=== PATIENT | female | born 1935 | race Caucasian/White ===

== ENCOUNTER 2017-06-08 17:37 | Inpatient (IN) | payer OTHER ==
[~2017-06-08] VITALS: Ht 165.1 cm; Wt 84.7 kg
[~2017-06-08 17:37] MED LIST: ARICEPT5 MG PO; CELEBREX200 MG PO; CRESTOR20 MG PO; FLOVENT DISKUS1 DIS2 IH; Feosol PO; LISINOPRIL-HCT1 EACH PO; Lovenox SC; Lumigan 0.01% Ophth BOTH EYES; Milk Of Magnesia,MOM PO; NORVASC10 MG PO; Norvasc PO; PROTONIX40 MG PO; Percocet 5/325,Endoc PO; Protonix PO; Rocephin IV; Senokot,Sennagen PO; Theragran PO; Tylenol Regular Stre PO; VOLTAREN75 MG PO; Vitamin D, Drisdol PO; ZOLOFT100 MG PO; Zestoretic,Prinzide PO; Zoloft PO
[2017-06-08 22:18] LABS: EOSINOPHIL (%) 0.5 % (0-5); EOSINOPHIL COUNT 0.1 K/uL (0-0.3); HEMATOCRIT 43.5 % (36.0-46.0); IMMATURE GRANULOCYTE (%) 0.6 % (0.0-0.7); IMMATURE GRANULOCYTE COUNT 0.1 K/uL; INSTRUMENT ABS NEUTROPHIL CT 7.3 K/uL; LYMPHOCYTE COUNT 1.5 K/uL (1.0-2.8); MCH 28.4 PG (29.0-34.0); MCHC 33.3 G/DL (30.0-36.0); MCV 85.3 FL (83-99); MEAN PLAT.VOLUME 12.7 uM^3 (9.5-12.4); MONOCYTE (%) 5.6 % (3-12); MONOCYTE COUNT 0.5 K/uL (0-0.8); NEUTROPHIL (%) 77.1 % (45-76); NEUTROPHIL COUNT 7.3 K/uL (1.8-6.4); PLATELET COUNT 160 K/uL (156-360); WHITE BLOOD COUNT 9.4 K/uL (4.1-10.2)
[2017-06-08] MEDS ORDERED: LO-DOSE ASPIRIN81 M2 PO (22:22)
[2017-06-08] MEDS ORDERED: IRON325 M1 PO (22:24)
[2017-06-08] MEDS ORDERED: FISH OIL 1,0001 EAC7 PO (22:25)
[2017-06-08] MEDS ORDERED: K-DUR10 MEQ PO (22:25)
[2017-06-08 22:27] LABS: CHLORIDE 104 mEq/L (99-109); POTASSIUM 3.2 mEq/L (3.7-5.4); SODIUM 144 mEq/L (136-147)
[2017-06-08 22:30] LABS: GLUCOSE 124 mg/dL (70-99)
[2017-06-08 22:31] LABS: ANION GAP 15 MEQ/L (2-14)
[2017-06-08] MEDS ORDERED: LATANOPROST2.5 ML BOTH EYES (22:31)
[2017-06-08 22:32] LABS: TOTAL BILIRUBIN 0.4 mg/dL (0.0-1.0)
[2017-06-08] MEDS ORDERED: LISINOPRIL10 MG PO (22:32)
[2017-06-08 22:33] LABS: ALKALINE PHOSPHATASE 105 IU/L (3-129); GFR ESTIMATE (CALCULATED) > 59 mL/min/
[2017-06-08] MEDS ORDERED: NORVASC10 MG PO (22:33)
[2017-06-08] MEDS ORDERED: MIRTAZAPINE7.5 MG PO (22:33)
[2017-06-08] MEDS ORDERED: PRAVASTATIN SOD40 MG PO (22:33)
[2017-06-08 22:34] LABS: UREA NITROGEN (BUN) 15 mg/dL (9-23)
[2017-06-08] MEDS ORDERED: TYLENOL REGULA325 MG PO ×2 (22:34→22:36)
[2017-06-08] MEDS ORDERED: ZANTAC150 MG PO (22:34)
[2017-06-08] MEDS ORDERED: RISPERDAL0.25 MG PO (22:34)
[2017-06-08] MEDS ORDERED: SERTRALINE HCL100 MG PO (22:34)
[2017-06-08] MEDS ORDERED: SYSTANE 0.3-0.1 EACH BOTH EYES (22:35)
[2017-06-08] MEDS ORDERED: TRAMADOL HCL50 MG PO (22:36)
[2017-06-09] VITALS (8 sets, daily range): BP systolic 129–190; BP diastolic 61–92
[2017-06-09 06:48] LABS: HEMATOCRIT 37.9 % (36.0-46.0); MCH 30.2 PG (29.0-34.0); MCHC 35.1 G/DL (30.0-36.0); MCV 86.1 FL (83-99); MEAN PLAT.VOLUME 13.5 uM^3 (9.5-12.4); PLATELET COUNT 139 K/uL (156-360); RBC DIS.WIDTH-CV 14.2 % (11.8-14.6); RBC DIS.WIDTH-SD 45.4 % (39-53); WHITE BLOOD COUNT 6.4 K/uL (4.1-10.2)
[2017-06-09 07:14] LABS: ANION GAP 10 MEQ/L (2-14); CHLORIDE 106 MEQ/L (99-109); GFR ESTIMATE (CALCULATED) > 59 mL/min/; GLUCOSE 113 mg/dL (70-99); POTASSIUM 3.3 MEQ/L (3.7-5.4); SAMPLE HEMOLYSIS CHECK 0; SAMPLE ICTERIC CHECK 0; SAMPLE LIPEMIA CHECK 0; SODIUM 142 MEQ/L (136-147); UREA NITROGEN (BUN) 14 mg/dL (9-23)
[2017-06-10 03:27] VITALS: BP 140/65
[2017-06-10 06:56] LABS: TROP-I INTERPRETATION NEGATIVE; TROPONIN-I < 0.01 ng/mL (0.0-0.30)
[2017-06-10 08:20] VITALS: BP 145/56
[2017-06-10 13:40] VITALS: BP 153/79
[2017-06-10 15:33] VITALS: BP 143/67
[2017-06-10 19:30] VITALS: BP 154/73
[2017-06-10 23:38] VITALS: BP 161/84
[2017-06-11 03:55] VITALS: BP 146/70
[2017-06-11 06:57] LABS: ANION GAP 11 MEQ/L (2-14); CHLORIDE 108 MEQ/L (99-109); GFR ESTIMATE (CALCULATED) > 59 mL/min/; GLUCOSE 147 mg/dL (70-99); POTASSIUM 3.8 MEQ/L (3.7-5.4); SAMPLE HEMOLYSIS CHECK 0; SAMPLE ICTERIC CHECK 0; SAMPLE LIPEMIA CHECK 0; SODIUM 144 MEQ/L (136-147); UREA NITROGEN (BUN) 17 mg/dL (9-23)
[2017-06-11 07:26] VITALS: BP 136/77
[2017-06-11 11:25] VITALS: BP 164/77
[2017-06-11 16:44] VITALS: BP 172/78
[2017-06-11 20:06] VITALS: BP 147/71
[2017-06-12 00:12] VITALS: BP 156/72
[2017-06-12 00:35] VITALS: BP 149/70
[2017-06-12 07:33] VITALS: BP 164/77
[2017-06-12 11:01] VITALS: BP 136/64
[2017-06-12 16:32] VITALS: BP 142/65
[2017-06-12 19:37] VITALS: BP 145/78
[2017-06-13 04:31] VITALS: BP 177/85
[2017-06-13 06:56] LABS: MCH 28.9 PG (29.0-34.0); MCHC 33.4 G/DL (30.0-36.0); MCV 86.6 FL (83-99); MEAN PLAT.VOLUME 13.1 uM^3 (9.5-12.4); PLATELET COUNT 153 K/uL (156-360); RBC DIS.WIDTH-CV 14.2 % (11.8-14.6); RBC DIS.WIDTH-SD 45.6 % (39-53); RED BLOOD COUNT 4.39 M/uL (3.80-5.20); WHITE BLOOD COUNT 6.8 K/uL (4.1-10.2)
[2017-06-13 07:15] LABS: ANION GAP 7 MEQ/L (2-14); CHLORIDE 104 MEQ/L (99-109); GFR ESTIMATE (CALCULATED) > 59 mL/min/; GLUCOSE 127 mg/dL (70-99); POTASSIUM 3.8 MEQ/L (3.7-5.4); SAMPLE HEMOLYSIS CHECK 0; SAMPLE ICTERIC CHECK 0; SAMPLE LIPEMIA CHECK 0; SODIUM 141 MEQ/L (136-147); UREA NITROGEN (BUN) 23 mg/dL (9-23)
[2017-06-13 07:35] VITALS: BP 136/65
[2017-06-13] MEDS ORDERED: LEVOFLOXACIN750 MG PO (11:03)
[2017-06-13] MEDS ORDERED: HYDROCODON-ACE1 EAC7 PO (11:03)
[2017-06-13] MEDS ORDERED: LIDOCAINE700 MG TD (11:03)
[2017-06-13] MEDS ORDERED: PREDNISONE20 MG PO (11:03)
[2017-06-13 12:22] VITALS: BP 147/80
== END 2017-06-13 16:03 | DRG 183 ==
LOC: TRA 17:37 → EME 17:37 → 3EAST 23:15 → EDOF 23:15 → 3EAST 23:15
PROVIDERS: Emergency Medicine; Internal Medicine; Internal Medicine Cardiovascular Disease; Thoracic Surgery (Cardiothoracic Vascular Surgery)
DX: S22.22XA Fracture of body of sternum, initial encounter for closed fracture (principal); J18.9 Pneumonia, unspecified organism; J98.11 Atelectasis; J90 Pleural effusion, not elsewhere classified; R09.02 Hypoxemia; D69.6 Thrombocytopenia, unspecified; S27.322A Contusion of lung, bilateral, initial encounter; E04.1 Nontoxic single thyroid nodule; Y95 Nosocomial condition; F03.90 Unspecified dementia, unspecified severity, without behavioral disturbance, psychotic disturbance, mood disturbance, and anxiety; I10 Essential (primary) hypertension; E78.5 Hyperlipidemia, unspecified; V49.50XA Passenger injured in collision with unspecified motor vehicles in traffic accident, initial encounter; F32.9 Major depressive disorder, single episode, unspecified; M19.90 Unspecified osteoarthritis, unspecified site; K21.9 Gastro-esophageal reflux disease without esophagitis; Z87.891 Personal history of nicotine dependence; Z90.49 Acquired absence of other specified parts of digestive tract
CPT/HCPCS: 71010; 71020; 71250; 80048; 80053; 83605; 84439; 84443; 84480 90; 84484; 85025; 85027; 87040; 87070; 87205; 93005; 93306; 94010; 94640; 94640 76; 94799; 97530 GP; 99202; 99281; 99285; J0692; J0696; J1644; J2543; J2920; J3370; J7050; J7120; J7512

== ENCOUNTER → 2017-10-23 | Outpatient (CLI) | payer OTHER ==
[~2017-10-23] MED LIST changes: +FISH OIL 1,0001 EAC7 PO; +HYDROCODON-ACE1 EAC7 PO; +IRON325 M1 PO; +K-DUR10 MEQ PO; +LATANOPROST2.5 ML BOTH EYES; +LEVOFLOXACIN750 MG PO; +LIDOCAINE700 MG TD; +LISINOPRIL10 MG PO; +LO-DOSE ASPIRIN81 M2 PO; +MIRTAZAPINE7.5 MG PO; +PRAVASTATIN SOD40 MG PO; +PREDNISONE20 MG PO; +RISPERDAL0.25 MG PO; +SERTRALINE HCL100 MG PO; +SYSTANE 0.3-0.1 EACH BOTH EYES; +TRAMADOL HCL50 MG PO; +TYLENOL REGULA325 MG PO; +ZANTAC150 MG PO
== END ==
LOC: RAD 13:34
PROC: 0G9H3ZX Drainage of Right Thyroid Gland Lobe, Percutaneous Approach, Diagnostic (ICD-10-PCS; principal; 2017-10-23)
DX: E04.2 Nontoxic multinodular goiter (principal)
CPT/HCPCS: 76942